=== PATIENT | male | born 1995 | race African-American/Black ===

== ENCOUNTER 2018-08-09 19:45 | Emergency (ER) | payer BC ==
[~2018-08-09] VITALS: Ht 177.8 cm; Wt 77.1 kg
[2018-08-09] MEDS ORDERED: IBUPROFEN 800800 M1 PO (21:31)
[2018-08-09] MEDS ORDERED: KEFLEX500 M1 PO (21:31)
[2018-08-09 22:04] VITALS: BP 117/72
== END 2018-08-09 22:06 | disposition home or self-care (01) ==
LOC: ER 19:45
DX: L03.011 Cellulitis of right finger (principal)